=== PATIENT | female | born 1990 | race American Indian/Alaskan Native ===

== ENCOUNTER 2017-02-24 18:01 | Emergency (ER) | payer SELFPAY | END 2017-02-24 18:50 | disposition left against medical advice (07) | LOC: ED 18:01 | DX: K13.79 Other lesions of oral mucosa (principal); M54.9 Dorsalgia, unspecified; R10.9 Unspecified abdominal pain; Z53.21 Procedure and treatment not carried out due to patient leaving prior to being seen by health care provider ==

== ENCOUNTER 2019-01-26 08:19 | Emergency (ER) | payer OTHER ==
[2019-01-26 08:23] VITALS: BP 139/92
--- NOTE | 2019-01-26 09:00 | Emergency Department Report ---
ED ENT HPI - General Chief complaint: Sore Throat Stated complaint: SORE THROAT Time Seen by Provider: 01/26/19 08:54 Source: patient Mode of arrival: Ambulatory Limitations: No Limitations - History of Present Illness MD complaint: sore throat -: days(s) (2) Severity: moderate Severity scale (0 -10): 4 Associated Symptoms: cough, pain with swallowing, sore throat. denies: rhinorrhea - Related Data Previous Rx's Medication Instructions Recorded Last Taken Type Azithromycin [Zithromax Z-ANGELA] 250 mg PO DAILY #6 tablet 05/31/14 Unknown Rx guaiFENesin/CODEINE [Robitussin AC] 5 ml PO Q6HR #4 oz 05/31/14 Unknown Rx Allergies Allergy/AdvReac Type Severity Reaction Status Date / Time No Known Allergies Allergy Verified 01/26/19 08:20 ED Dental HPI - General Chief complaint: Sore Throat Stated complaint: SORE THROAT Time Seen by Provider: 01/26/19 08:54 Source: patient Mode of arrival: Ambulatory Limitations: No Limitations - Related Data Previous Rx's Medication Instructions Recorded Last Taken Type Azithromycin [Zithromax Z-ANGELA] 250 mg PO DAILY #6 tablet 05/31/14 Unknown Rx guaiFENesin/CODEINE [Robitussin AC] 5 ml PO Q6HR #4 oz 05/31/14 Unknown Rx Allergies Allergy/AdvReac Type Severity Reaction Status Date / Time No Known Allergies Allergy Verified 01/26/19 08:20 ED Review of Systems ROS: Stated complaint: SORE THROAT Other details as noted in HPI Comment: All other systems reviewed and negative Constitutional: denies: chills, fever ENT: throat pain Respiratory: cough. denies: orthopnea, shortness of breath, SOB with exertion Cardiovascular: denies: chest pain, palpitations Gastrointestinal: denies: abdominal pain, nausea Neurological: denies: headache, weakness, numbness, paresthesias, confusion ED Past Medical Hx - Past Medical History Hx Seizures: Yes Hx Asthma: Yes Additional medical history: kidney stone - Social History Smoking Status: Never Smoker Substance Use Type: Alcohol - Medications Home Medications: Home Medications Medication Instructions Recorded Confirmed Last Taken Type Azithromycin [Zithromax Z-ANGELA] 250 mg PO DAILY #6 tablet 05/31/14 Unknown Rx guaiFENesin/CODEINE [Robitussin AC] 5 ml PO Q6HR #4 oz 05/31/14 Unknown Rx ED Physical Exam - General Limitations: No Limitations General appearance: alert, in no apparent distress - Head Head exam: Present: atraumatic, normocephalic, normal inspection - Eye Eye exam: Present: normal appearance - ENT ENT exam: Present: mucous membranes moist, other (mild pharyngeal erythema, no exudate) - Respiratory Respiratory exam: Present: normal lung sounds bilaterally. Absent: respiratory distress, wheezes, rales, rhonchi, accessory muscle use, decreased breath sounds, prolonged expiratory - Cardiovascular Cardiovascular Exam: Present: regular rate, normal rhythm, normal heart sounds - GI/Abdominal GI/Abdominal exam: Present: soft. Absent: distended, tenderness, guarding, rebound, rigid - Back Exam Back exam: Present: normal inspection - Neurological Exam Neurological exam: Present: alert, oriented X3, CN II-XII intact, normal gait, reflexes normal - Skin Skin exam: Present: warm, intact, normal color ED Course Vital Signs 01/26/19 08:21 Temperature 97.8 F Pulse Rate 66 Respiratory 20 Rate Blood Pressure 139/92 O2 Sat by Pulse 100 Oximetry ED Medical Decision Making - Medical Decision Making Strep test is negative. Patient symptoms is most likely due to a viral syndrome. Patient advised to follow up with her primary care physician in the next 2-3 days and return to the ER if symptoms not improved. Critical care attestation.: If time is entered above; I have spent that time in minutes in the direct care of this critically ill patient, excluding procedure time. ED Disposition Clinical Impression: Upper respiratory infection Disposition: DC-01 TO HOME OR SELFCARE Is pt being admited?: No Condition: Stable Instructions: Upper Respiratory Infection (ED) Referrals: DANIELA JOEL MD [Primary Care Provider] - 3-5 Days
== END 2019-01-26 10:22 | disposition home or self-care (01) ==
LOC: ED 08:19
DX: J06.9 Acute upper respiratory infection, unspecified (principal); J45.909 Unspecified asthma, uncomplicated; Z87.442 Personal history of urinary calculi
CPT/HCPCS: 87116; 87430; 99283